=== PATIENT | male | born 1940 | race Caucasian/White ===

== ENCOUNTER 2016-10-28 08:43 | Emergency (ER) | payer OTHER ==
[2016-10-28 08:57] VITALS: RESP 18
[2016-10-28] MEDS ORDERED: NS 500 ML IV ONE (09:00)
--- NOTE | 2016-10-28 09:03 | CPEKG ---
Heart Rate: 97 RR Interval: 619 QRSD Interval: 90 QT Interval: 392 QTC Interval: 498 QRS [place]: 76 T Wave [place]: 71 EKG Severity - ABNORMAL ECG - EKG Impression: ATRIAL FIBRILLATION EKG Impression: BORDERLINE R WAVE PROGRESSION, ANTERIOR LEADS EKG Impression: BORDERLINE T ABNORMALITIES, ANT-LAT LEADS EKG Impression: BORDERLINE PROLONGED QT INTERVAL Electronically Signed By: Rafael Winston 28-Oct-2016 14:28:03
--- NOTE | 2016-10-28 09:10 | EDPHY ---
HPI/HX/ROS/PE/MDM Narrative: CHIEF COMPLAINT: Palpitations HPI: The patient is a 76 year old male who complains of palpitations that started at 7:30 a.m. He started to walk around and felt lightheaded and short of breath. His pulse felt like it was in the 100s originally and then shortly after felt very slow and irregular. The patient has experienced this in the past with heart rate reaching 165. He was seen in [place] at that time and received a Beta eamon. [place] the [place] and had a full cardiac workup that was normal. The patient increased from 25mg to 50mg of Levothyroxine in July. Patient additionally states he recently flew home from [place] where he spent the winter. This morning he had a right leg cramp. REVIEW OF SYSTEMS: Aside from elements discussed in the HPI, a comprehensive 10-point review of systems was reviewed and is negative. PMH: Hypothyroid. PSH: Appendectomy. SOCIAL HISTORY: . PHYSICAL EXAM: General: Patient is alert, in no acute distress. ENT: Eyes are normal to inspection. ENT inspection normal. Neck: Normal inspection. Full range of motion. Respiratory: No respiratory distress. Breath sounds normal bilaterally. Cardiovascular: Irregular rhythm, normal rate. Strong peripheral pulses. Abdomen: The abdomen is nontender to palpation. There are no peritoneal signs. There are normal bowel sounds. Back: Normal to inspection. No tenderness to palpation. Skin: Normal color. No rash. Warm and dry. Extremities: Normal appearance. Full range of motion. Neuro: Oriented x3. Normal motor function. Normal sensory function. ED Course: The 12 lead EKG was interpreted by myself. See hard copy and/or "tracemaster" electronic copy for interpretation: Atrial fibrillation. Chest x-ray is pending. Troponin and d-dimer ordered. Imaging: Study: X-ray of the chest was obtained. Results: Asymmetrically elevated right hemidiaphragm. Bronchitis. Images were interpreted by the radiologist, Dr. Alvarado. I viewed the images myself on the PACS system. 1030: I spoke to Liana Marques with [facility] he suggests starting the patient on Eliquis and will see the patient in clinic. MDM: This patient presents with atrial fibrillation and near syncope that I suspect represents several weeks of paroxysmal a-fib. He spontaneously converted in the ED without intervention. I will prescribe Eliquis for the time being and patient will need urgent cardiology referral. Given negative workup, I see no signs of hyperthyroidism, PE, ACS, TAD or infectious process. - Data Points Laboratory Results: Laboratory Results 10/28/16 09:10 10/28/16 09:10 10/28/16 10/28/16 10/28/16 09:10 09:10 09:10 WBC 9.70 10^3/uL H 10^3/uL (3.80-9.50) RBC 4.74 10^6/uL 10^6/uL (4.40-6.38) Hgb 15.2 g/dL g/dL (13.7-17.5) Hct 44.0 % % (40.0-51.0) MCV 92.8 fL fL (81.5-99.8) MCH 32.1 pg pg (27.9-34.1) MCHC 34.5 g/dL g/dL (32.4-36.7) RDW 11.9 % % (11.5-15.2) Plt Count 237 10^3/uL 10^3/uL (150-400) MPV 8.9 fL fL (8.7-11.7) Neut % (Auto) 79.8 % H % (39.3-74.2) Lymph % (Auto) 9.7 % L % (15.0-45.0) [place] % (Auto) 9.0 % % (4.5-13.0) Eos % (Auto) 1.0 % % (0.6-7.6) Baso % (Auto) 0.1 % L % (0.3-1.7) Nucleat RBC Rel Count 0.0 % % (0.0-0.2) Absolute Neuts (auto) 7.74 10^3/uL H 10^3/uL (1.70-6.50) Absolute Lymphs (auto) 0.94 10^3/uL L 10^3/uL (1.00-3.00) Absolute Monos (auto) 0.87 10^3/uL H 10^3/uL (0.30-0.80) Absolute Eos (auto) 0.10 10^3/uL 10^3/uL (0.03-0.40) Absolute Basos (auto) 0.01 10^3/uL L 10^3/uL (0.02-0.10) Absolute Nucleated RBC 0.00 10^3/uL 10^3/uL (0-0.01) Immature Gran % 0.4 % % (0.0-1.1) Immature Gran # 0.04 10^3/uL 10^3/uL (0.00-0.10) PT 13.6 SEC SEC (12.0-15.0) INR 1.05 (0.83-1.16) APTT 30.3 SEC SEC (23.0-38.0) D-Dimer < 0.27 ug/mLFEU ug/mLFEU (0.00-0.50) Sodium 140 mEq/L mEq/L (134-144) Potassium 4.4 mEq/L mEq/L (3.5-5.2) Chloride 106 mEq/L mEq/L (97-110) Carbon Dioxide 25 mEq/l mEq/l (22-31) Anion Gap 9 mEq/L mEq/L (8-16) BUN 18 mg/dL mg/dL (7-23) Creatinine 0.8 mg/dL mg/dL (0.7-1.3) Estimated GFR > 60 Glucose 114 mg/dL H mg/dL (70-100) Calcium 9.0 mg/dL mg/dL (8.5-10.4) Troponin I < 0.012 ng/mL ng/mL (0-0.034) NT-Pro-B Natriuret Pep 157 pg/mL pg/mL (0-450) Medications Given: Discontinued Medications Sodium Chloride (Ns) 500 mls @ 0 mls/hr IV ONCE ONE PRN Reason: Wide Open Stop: 10/28/16 09:01 Last Admin: 10/28/16 09:00 Dose: 500 mls General Time Seen by Provider: 10/28/16 08:59 Initial Vital Signs: Initial Vital Signs Temperature (C) 36.5 C 10/28/16 08:55 Heart Rate 94 10/28/16 08:55 Respiratory Rate 18 10/28/16 08:55 Blood Pressure 120/76 10/28/16 08:55 O2 Sat (%) 93 10/28/16 08:55 O2 Delivery Mode Room Air Allergies/Adverse Reactions: Penicillins Allergy (Verified 10/28/16 08:55) Home Medications: Medication Instructions Recorded Apixaban [Eliquis] 5 mg PO BID #20 tab 10/28/16 Levothyroxine 10/28/16 Departure - Departure Disposition: Home, Routine, Self-Care Clinical Impression: Paroxysmal atrial fibrillation Condition: Good Instructions: A-fib (Atrial Fibrillation) (ED) Additional Instructions: Start the Eliquis and continue to use as directed. [facility]. Please call today to arrange a followup appointment. Referrals: ARMANI ESPINAL [Other] - As per Instructions Liana Marques PA [Physician [employer]] - As per Instructions [facility] [Provider Group] - As per Instructions Prescriptions: Apixaban [Eliquis] 5 mg PO BID #20 tab Report Scribed for: Rafael Winston Report Scribed by: Amira Esqueda Date of Report: 10/28/16 Time of Report: 09:10
[2016-10-28 09:23] LABS: % IMMATURE GRANULYOCYTES 0.4 % (0.0-1.1); ABSOLUTE IMMATURE GRANULOCYTES 0.04 10^3/uL (0.00-0.10); ADD DIFF? NO; ADD MORPH? NO; ADD SCAN? NO; ATYPICAL LYMPHOCYTE FLAG 10 (0-99); FRAGMENT RBC FLAG 10 (0-99); HEMOGLOBIN 15.2 g/dL (13.7-17.5); LEFT SHIFT FLG 0 (0-99); LIPEMIA HEMOLYSIS FLAG 90 (0-99); MEAN CELL HEMOGLOBIN 32.1 pg (27.9-34.1); MEAN CELL HEMOGLOBIN CONCENTR. 34.5 g/dL (32.4-36.7); MEAN CELL VOLUME 92.8 fL (81.5-99.8); MEAN PLATELET VOLUME 8.9 fL (8.7-11.7); PLATELET CLUMPS FLAG 10 (0-99); PLATELET COUNT 237 10^3/uL (150-400); RED BLOOD CELL COUNT 4.74 10^6/uL (4.40-6.38); RED CELL DISTRIBUTION WIDTH 11.9 % (11.5-15.2)
[2016-10-28 09:36] LABS: ANION GAP 9 mEq/L (8-16); CARBON DIOXIDE 25 mEq/l (22-31); CHLORIDE 106 mEq/L (97-110); CREATININE 0.8 mg/dL (0.7-1.3); GLOMERULAR FILTRATION RATE > 60; GLUCOSE 114 mg/dL (70-100); POTASSIUM 4.4 mEq/L (3.5-5.2); SODIUM 140 mEq/L (134-144)
[2016-10-28 09:43] LABS: INR 1.05 (0.83-1.16); PROTIME(PATIENT) 13.6 SEC (12.0-15.0)
[2016-10-28 09:44] LABS: APTT 30.3 SEC (23.0-38.0)
[2016-10-28 09:48] LABS: TROPONIN I < 0.012 ng/mL (0-0.034)
--- NOTE | 2016-10-28 10:06 | CPEKG ---
Heart Rate: 73 RR Interval: 822 P-R Interval: 244 QRSD Interval: 86 QT Interval: 384 QTC Interval: 424 P [place]: 71 QRS [place]: 75 T Wave [place]: 67 EKG Severity - ABNORMAL ECG - EKG Impression: SINUS RHYTHM EKG Impression: FIRST DEGREE AV BLOCK EKG Impression: BORDERLINE T ABNORMALITIES, ANT-LAT LEADS Electronically Signed By: Rafael Winston 28-Oct-2016 14:26:32
[2016-10-28 10:59] VITALS: BP 125/80; PULSE 76; TEMP 98.4; O2SAT 95
== END 2016-10-28 10:58 | disposition home or self-care (01) ==
DX: I48.0 Paroxysmal atrial fibrillation (principal)

== ENCOUNTER 2019-01-17 12:44 | Emergency (ER) | payer OTHER | END 2019-01-17 15:44 | disposition home or self-care (01) ==